=== PATIENT | male | born 1995 | race Caucasian/White ===

== ENCOUNTER 2018-10-21 15:49 | Emergency (ER) | payer OTHER ==
[2018-10-21] MEDS ORDERED: SODIUM CHLORIDE 0.9% 1000ML 1,000 ML IV ONE (15:59)
[2018-10-21 16:04] LABS: BASOPHILS % (AUTO) 1 % (0-3); EOSINOPHILS % (AUTO) 3 % (0-9); HEMATOCRIT 48 % (39-53); HEMOGLOBIN 15.8 gm/dl (13.5-17.7); LYMPHOCYTES % (AUTO) 31.4 % (10-50); MEAN CORPUSCULAR HEMOGLOBIN 28.6 pg (27.0-32.0); MEAN CORPUSCULAR HGB CONC 32.9 gm/dl (32.0-36.0); MEAN CORPUSCULAR VOLUME 87 fL (80-100); MONOCYTES % (AUTO) 9.8 % (0-12); NEUTROPHILS % (AUTO) 54.7 % (37-80)
[2018-10-21 16:12] LABS: CALCIUM 8.5 mg/dl (8.5-10.1); CARBON DIOXIDE 25.7 mEq/L (21-32); CREATININE 1.01 mg/dl (0.80-1.30); POTASSIUM 3.6 mMol/L (3.5-5.1)
[2018-10-21] MEDS ORDERED: HYDROMORPHONE 1 MG/ML SYRINGE IV ONE (16:20)
[2018-10-21] MEDS ORDERED: CEFAZOLIN SODIUM 1 GM PDS 2 GM in SODIUM CHLORIDE 0.9% 100 ML 100 ML IV ONE (16:20)
[2018-10-21] MEDS ORDERED: HYDROMORPHONE 1 MG/ML SYRINGE ONE (16:22)
[2018-10-21] MEDS ORDERED: CEFAZOLIN SODIUM 1 GM PDS ONE (16:22)
[2018-10-21 16:35] VITALS: BP 166/99; PULSE 119; RESP 18; TEMP 99.2; O2SAT 97
[2018-10-21 17:09] LABS: ABO O; ANTIBODY SCREEN Negative; RH TYPE Positive
== END 2018-10-21 16:55 | disposition short-term general hospital (02) ==
LOC: ED 15:49
DX: S31.100A Unspecified open wound of abdominal wall, right upper quadrant without penetration into peritoneal cavity, initial encounter (principal); W32.0XXA Accidental handgun discharge, initial encounter; Y93.9 Activity, unspecified; Y99.9 Unspecified external cause status; Y92.009 Unspecified place in unspecified non-institutional (private) residence as the place of occurrence of the external cause
CPT/HCPCS: 71045; 71250; 74176; 80048; 85025; 86850; 86900; 86901; 96365; 96374; 99285; 99291; G0390; J0690; J1170